=== PATIENT | male | born 1970 | race Caucasian/White ===

== ENCOUNTER → 2018-03-02 | Emergency (ER) | payer BC ==
[~2018-03-02] VITALS: Ht 172.7 cm; Wt 81.8 kg
[2018-03-02 00:36] LABS: BASO % 0.7 % (0.0-2.0); EOS # 0.2 (0.0-0.7); EOS % 3.1 % (0-4.0); GRAN # 3.3 (1.4-6.5); GRAN % 55.5 % (42.2-75.2); HEMATOCRIT 40.9 % (42.0-52.0); HEMOGLOBIN 14.8 g/dl (13.5-18.0); LYMPH % 33.6 % (20.0-51.0); MEAN CELL VOLUME 86 fl (80.0-100.0); MEAN CORPUSCULAR HEMOGLOBIN 31 pg (27.0-31.0); MEAN CORPUSCULAR HGB CONC 36 g/dl (33.0-37.0); MEAN PLATELET VOLUME 10.3 fl (7.4-10.4); MONO # 0.4 (0.1-0.6); MONO % 6.2 % (1.7-9.3); PLATELET COUNT 190 K/mm3 (130-400); RED BLOOD COUNT 4.75 M/mm3 (4.20-5.60); REDCELL DISTRIBUTION WIDTH-CV 11.5 % (11.5-14.5)
[2018-03-02 00:45] LABS: ALBUMIN 4.5 gm/dL (3.5-5.0); BILIRUBIN,TOTAL 1.8 mg/dL (0.0-1.0); CALCIUM 9.3 mg/dL (8.4-10.2); CREATININE, serum 0.89 mg/dL (0.66-1.25); TOTAL PROTEIN 7.6 gm/dL (6.4-8.2)
[2018-03-02 02:55] VITALS: BP 118/68; PULSE 64; TEMP 97.2
== END ==
LOC: COL.ER 00:04
PROVIDERS: Emergency Medicine
DX: F10.129 Alcohol abuse with intoxication, unspecified (principal); T68.XXXA Hypothermia, initial encounter; R11.2 Nausea with vomiting, unspecified; Y90.6 Blood alcohol level of 120-199 mg/100 ml
CPT/HCPCS: J2405; J7030